=== PATIENT | female | born 1990 ===

== ENCOUNTER 2019-04-20 09:30 | Inpatient (IN) | payer OTHER ==
[2019-04-20] MEDS ORDERED: Oxytocin/0.9 % Sodium Chloride 30 UNIT/500 ML BAG IV SCH ×2 (10:30→12:45)
[2019-04-20] MEDS ORDERED: Misoprostol 200 MCG Tab PO PRN (10:30)
[2019-04-20] MEDS ORDERED: Water For Irrigation,Sterile 1,000 ML Container IRR PRN (10:30)
[2019-04-20] MEDS ORDERED: Carboprost Tromethamine 250 MCG/1 ML Amp IM PRN (10:30)
[2019-04-20] MEDS ORDERED: Sodium Chloride 0.9% 2.5 ML Syringe FLUSH PRN (10:30)
[2019-04-20] MEDS ORDERED: Nalbuphine 10 MG/1 ML Vial IVPUSH PRN (10:30)
[2019-04-20] MEDS ORDERED: Sodium Chloride 0.9% 10 ML Syringe FLUSH PRN (10:30)
[2019-04-20] MEDS ORDERED: Methylergonovine 0.2 MG/1 ML Amp IM PRN (10:30)
[2019-04-20] MEDS ORDERED: Sodium Chloride 0.9% 10 ML SDV IV PRN (10:30)
[2019-04-20] MEDS ORDERED: Lidocaine 1% 50 ML MDV INJECT PRN (10:30)
[2019-04-20] MEDS ORDERED: Butorphanol 1 MG/ML SDV IVPUSH PRN (10:30)
[2019-04-20] MEDS ORDERED: Tranexamic Acid 1,000 MG in Sodium Chloride 0.9% 100 ML IV PRN (10:30)
[2019-04-20] MEDS ORDERED: Terbutaline 1 MG/ML SDV SUBCUT PRN (12:33)
[2019-04-20] MEDS: Lactated Ringers 1,000 ML IV SCH ×3 (12:35→20:50)
[2019-04-20] MEDS ORDERED: Oxytocin/0.9 % Sodium Chloride 30 UNIT/500 ML BAG ONE (12:39)
[2019-04-20] MEDS ORDERED: Ropivacaine HCl/PF 100 ML ONE (13:07)
[2019-04-20] MEDS ORDERED: Lidocaine HCl/EPINEPHrine 5 ML IJ ONE (13:07)
--- NOTE | 2019-04-20 13:11 | PCM.PREANE ---
Preanesthetic Assessment - Anesthesia/Transfusion/Family Hx Anesthesia History: Prior Anesthesia Without Reaction Family History of Anesthesia Reaction: No - Review of Systems General: No Symptoms Pulmonary: No Symptoms Cardiovascular: No Symptoms Gastrointestinal: No Symptoms Neurological: No Symptoms Other: Reports: None - Physical Assessment Height: 1.55 m Weight: 78.471 kg ASA Class: 2E Mental Status: Alert & Oriented x3 Airway Class: Mallampati = 2 Dentition: Reports: Normal Dentition (small mouth) Thyro-Mental Finger Breadths: 3 Mouth Opening Finger Breadths: 3 ROM/Head Extension: Full Lungs: Clear to Auscultation, Normal Respiratory Effort Cardiovascular: Regular Rate, Regular Rhythm - Lab Values: Laboratory Last Values WBC 11.10 K/uL (4.0-11.0) H 04/20/19 11:02 RBC 3.82 M/uL (4.30-5.90) L 04/20/19 11:02 Hgb 10.7 g/dL (12.0-16.0) L 04/20/19 11:02 Hct 33.6 % (36.0-46.0) L 04/20/19 11:02 MCV 88.0 fL (80.0-98.0) 04/20/19 11:02 MCH 28.0 pg (27.0-32.0) 04/20/19 11:02 MCHC 31.8 g/dL (31.0-37.0) 04/20/19 11:02 RDW Std Deviation 44.4 fl (28.0-62.0) 04/20/19 11:02 RDW Coeff of Christian 14 % (11.0-15.0) 04/20/19 11:02 Plt Count 143 K/uL (150-400) L 04/20/19 11:02 MPV 12.70 fL (7.40-12.00) H 04/20/19 11:02 Nucleated RBC % 0.0 /100WBC 04/20/19 11:02 Nucleated RBCs # 0 K/uL 04/20/19 11:02 Membrane Rupture POSITIVE 04/20/19 09:45 Blood Type A POSITIVE 04/20/19 11:02 Antibody Screen NEGATIVE 04/20/19 11:02 - Allergies Allergies/Adverse Reactions: Allergies Allergy/AdvReac Type Severity Reaction Status Date / Time amoxicillin Allergy Hives Verified 04/14/19 21:07 Penicillins Allergy Hives and Verified 04/20/19 13:06 difficult breathing - Acknowledgements Anesthesia Type Planned: Epidural (discussed risks and benefits in great detail , with special emphasis on "patchy" epidural, postdural headache, and back pain after epidural. Alternatives were discussed and the patient consented for an epidural. All questions answered. ) Pt an Appropriate Candidate for the Planned Anesthesia: Yes Alternatives and Risks of Anesthesia Discussed w Pt/Guardian: Yes Pt/Guardian Understands and Agrees with Anesthesia Plan: Yes PreAnesthesia Questionnaire HEENT History: Reports: None Cardiovascular History: Reports: None Respiratory History: Reports: None Gastrointestinal History: Reports: None Genitourinary History: Reports: None PATIENT'S LIBRARIAN History: Reports: Musculoskeletal History: Reports: None Neurological History: Reports: None Psychiatric History: Reports: None Endocrine/Metabolic History: Reports: Obesity/BMI 30+ Hematologic History: Reports: None - Past Surgical History HEENT Surgical History: Reports: Tonsillectomy, Other (See Below) (wisdom teeth extractions) - SUBSTANCE USE Smoking Status *Q: Never Smoker Days Per Week of Alcohol Use: 0 - HOME MEDS Home Medications: Home Meds Pnv No.95/Ferrous Fum/Folic AC [ Caplet] 1 each PO 04/14/19 [History] - CURRENT (IN HOUSE) MEDS Current Meds: Current Medications Butorphanol Tartrate (Stadol) 1 mg IVPUSH Q1H PRN PRN Reason: Pain Carboprost Tromethamine (Hemabate Ds) 250 mcg IM ASDIRECTED PRN PRN Reason: Post Hemorrhage Lactated Ringer's (Ringers, Lactated) 1,000 mls @ 150 mls/hr IV ASDIRECTED AMAN Last Admin: 04/20/19 12:35 Dose: 150 mls/hr Oxytocin/Sodium Chloride (Oxytocin 30 Unit/500 Ml-Ns) 30 unit in 500 mls @ 500 mls/hr IV TITRATE AMAN Tranexamic Acid 1,000 mg/ (Sodium Chloride) 110 mls @ 660 mls/hr IV ONETIME PRN PRN Reason: Bleeding Oxytocin/Sodium Chloride (Oxytocin 30 Unit/500 Ml-Ns) 30 unit in 500 mls @ 2 mls/hr IV TITRATE AMAN; Protocol Last Admin: 04/20/19 12:43 Dose: 2 munits/min, 2 mls/hr Lidocaine HCl (Xylocaine 1%) 50 ml INJECT ONETIME PRN PRN Reason: Laceration repair Methylergonovine Maleate (Methergine) 0.2 mg IM ASDIRECTED PRN PRN Reason: Post Hemorrhage Misoprostol (Cytotec) 200 mcg PO ONETIME PRN PRN Reason: Post Hemorrhage Nalbuphine HCl (Nubain) 10 mg IVPUSH Q1H PRN PRN Reason: Pain (severe 7-10) Sodium Chloride (Saline Flush) 10 ml FLUSH ASDIRECTED PRN PRN Reason: Keep Vein Open Sodium Chloride (Saline Flush) 2.5 ml FLUSH ASDIRECTED PRN PRN Reason: Keep Vein Open Sodium Chloride (Normal Saline) 10 ml IV ASDIRECTED PRN PRN Reason: IV Use Sterile Water (Sterile Water For Irrigation) 1,000 ml IRR ASDIRECTED PRN PRN Reason: delivery Terbutaline Sulfate (Brethine) 0.25 mg SUBCUT ASDIRECTED PRN PRN Reason: Tacysystole Discontinued Medications Oxytocin/Sodium Chloride (Oxytocin 30 Unit/500 Ml-Ns) Confirm Administered Dose 30 unit in 500 mls @ as directed .ROUTE .STK-MED ONE Stop: 04/20/19 12:40 Ropivacaine (Naropin 0.2%) Confirm Administered Dose 100 mls @ as directed .ROUTE .STK-MED ONE Stop: 04/20/19 13:08 Lidocaine/Epinephrine (Lidocaine 1.5%-Epi 1:200,000) Confirm Administered Dose 5 ml IJ .STK-MED ONE Stop: 04/20/19 13:08
[2019-04-20] MEDS ORDERED: Acetaminophen 500 MG Tab ONE (14:19)
[2019-04-20] MEDS ORDERED: Cyclobenzaprine 10 MG Tab PO ONE (22:00)
[2019-04-20] MEDS ORDERED: Cyclobenzaprine 5 MG Tab ONE (22:04)
[2019-04-21] MEDS: Lactated Ringers 1,000 ML IV SCH ×3 (00:01→05:34)
[2019-04-21] MEDS ORDERED: Bupivacaine 0.5% 30 ML SDV ONE (03:51)
[2019-04-21] MEDS ORDERED: Morphine PF 10 MG/10 ML SDV ONE (06:43)
[2019-04-21] MEDS ORDERED: Oxytocin/0.9 % Sodium Chloride 30 UNIT/500 ML BAG ONE (06:48)
[2019-04-21] MEDS ORDERED: ceFAZolin 1 GM Vial ONE (06:49)
[2019-04-21] MEDS ORDERED: Sodium Chloride 0.9% 20 ML ONE (06:49)
[2019-04-21] MEDS ORDERED: Azithromycin 500 MG in Sodium Chloride 0.9% 250 ML IV STA (06:50)
[2019-04-21] MEDS ORDERED: Bisacodyl 10 MG Supp RECTAL PRN (07:45)
[2019-04-21] MEDS ORDERED: Lanolin 100% Cream 7 GM Tube TOP PRN (07:45)
[2019-04-21] MEDS ORDERED: diphenhydrAMINE 50 MG/ML SDV IVPUSH PRN ×2 (07:45→07:55)
[2019-04-21] MEDS ORDERED: Acetaminophen/oxyCODONE 325-5 MG Tab PO PRN (07:45)
[2019-04-21] MEDS ORDERED: Lactated Ringers 1,000 ML IV SCH (07:45)
[2019-04-21] MEDS ORDERED: Ondansetron 4 MG/2 ML SDV IVPUSH PRN ×2 (07:45→07:55)
--- NOTE | 2019-04-21 07:51 | PCM.OPNOTE ---
- General Post-Op/Procedure Note Date of Surgery/Procedure: 04/21/19 Operative Procedure(s): Primary low transverse section Findings: Live male infant, Apgars 8/9, weight 3530g, cord gases pending. Placenta, intact, 3 vessel cord. Normal-appearing uterus. Pre Op Diagnosis: 28yo @ 40w0d. Spontaneous rupture of membranes. Arrest of active phase Post-Op Diagnosis: Same Anesthesia Technique: Spinal Primary Surgeon: Kayleigh Alonso Motor Scooter Repairer: Kaela Lo Pathology: Cord gases, cord blood, placenta Fluid Replacement, Intraop: 1,000 Output, Urine Amount: 100 EBL in mLs: 500 Complications: None Condition: Good
[2019-04-21] MEDS ORDERED: Nalbuphine 10 MG/1 ML Vial IVPUSH PRN (07:55)
[2019-04-21] MEDS ORDERED: fentaNYL 100 MCG/2 ML SDV IVPUSH PRN (07:55)
[2019-04-21] MEDS ORDERED: Naloxone 0.4 MG/ML Syringe IVPUSH PRN (07:55)
[2019-04-21] MEDS: Ferrous Sulfate 325 MG Tab PO SCH (08:00)
[2019-04-21] MEDS: Ketorolac 30 MG/ML SDV IVPUSH SCH ×3 (08:08→19:39)
--- NOTE | 2019-04-21 08:55 | PCM.POSTAN ---
POST ANESTHESIA ASSESSMENT - MENTAL STATUS Mental Status: Alert, Oriented - VITAL SIGNS Vital Signs: Last Vital Signs Temp 36.6 C 04/21/19 07:53 Pulse 103 H 04/21/19 08:33 Resp 22 H 04/21/19 08:33 BP 108/62 04/21/19 08:33 Pulse Ox 94 L 04/21/19 08:33 - RESPIRATORY Respiratory Status: Respiratory Rate WNL, Airway Patent, O2 Saturation Stable - CARDIOVASCULAR CV Status: Pulse Rate WNL, Blood Pressure Stable - GASTROINTESTINAL GI Status: No Symptoms - PAIN Pain Score: 0 - POST OP HYDRATION Hydration Status: Adequate & Stable - OBSERVATIONS Free Text/Narrative:: no anesthesia problems
[2019-04-21] MEDS: Docusate Sodium 100 MG Cap PO SCH ×2 (09:00→20:47)
--- NOTE | 2019-04-21 09:08 | PCM.SN ---
- Free Text/Narrative Note: Called at 2014 on 04-20-19 for epidural pump alarming and increasing pain with the patient. New bag of 0.125% marcaine with 2mcg/ml fentanyl hung. Pt. bolused 5mls and pump restarted. Pt checked on 10 minutes later and the patient was comfortable. Care was resumed by OB staff.
--- NOTE | 2019-04-21 13:01 | PCM48HPAN ---
Post Anesthesia Note - EVALUATION WITHIN 48HRS OF ANESTHETIC Vital Signs in Normal Range: Yes Patient Participated in Evaluation: Yes Respiratory Function Stable: Yes Airway Patent: Yes Cardiovascular Function Stable: Yes Hydration Status Stable: Yes Pain Control Satisfactory: Yes Nausea and Vomiting Control Satisfactory: Yes Mental Status Recovered: Yes Vital Signs: Last Vital Signs Temp 36.2 C 04/21/19 09:30 Pulse 100 04/21/19 11:00 Resp 18 04/21/19 11:00 BP 119/62 04/21/19 10:30 Pulse Ox 99 04/21/19 11:00 - COMMENTS/OBSERVATIONS Free Text/Narrative:: no anesthesia problems
--- NOTE | 2019-04-21 14:06 | OR ---
SURGEON: Kayleigh Alonso MD DATE OF PROCEDURE: 04/21/2019 PROCEDURE: section. PREOPERATIVE DIAGNOSES: 1. A 28-year-old, G2, P0-0-1-0, at 40 weeks and 0 days gestation. 2. Augmentation of labor for spontaneous rupture of membranes. 3. Arrest of active phase. POSTOPERATIVE DIAGNOSES: 1. A 28-year-old, G2, P0-0-1-0, at 40 weeks and 0 days gestation. 2. Augmentation of labor for spontaneous rupture of membranes. 3. Arrest of active phase. PROCEDURE: Primary low transverse section. PRIMARY SURGEON: Kayleigh Alonso MD. COUNTY PROGRAM TECHNICIAN: Kaela Lo. ANESTHESIA: Spinal. IV FLUIDS: 1000 mL LR. ESTIMATED BLOOD LOSS: 500 mL. URINE OUTPUT: 100 mL. FINDINGS: Live male infant in cephalic presentation. Apgars 8 and 9 at one and five minutes respectively. Weight 3530 g. Cord gases pending. Normal-appearing uterus. ANTIBIOTIC PROPHYLAXIS: Ancef 2 g and 500 mg azithromycin IV. DESCRIPTION OF PROCEDURE: The patient reported rupture of membranes and contractions that began on the morning of April 20. She presented to Labor and labor was augmented with Pitocin. She progressed to an anterior lip station after 4 hours with no cervical change and Pitocin with adequate contractions. The decision was made to proceed with primary section for arrest of active phase. The patient was taken to the operating room where spinal anesthesia was obtained as her epidural was not effective. She was placed in the dorsal supine position with a leftward tilt. She was prepared and draped in normal sterile fashion. A Pfannenstiel skin incision was made with a scalpel and carried through to the underlying layer of fascia with the Bovie. The fascia was incised in the midline and the incision extended laterally with curved Lo scissors. The superior aspect of the fascial incision was grasped with Chrystal clamps, elevated, and underlying rectus muscle dissected off bluntly and with Bovie. In a similar fashion, the inferior aspect of the fascial incision was grasped with Chrystal clamps, elevated, and underlying rectus muscles dissected off bluntly with curved Lo scissors. The peritoneum was identified and entered bluntly with a digit. The peritoneal incision was extended using manual traction. The Oscar retractor was placed. A low-transverse hysterotomy was created and extended with manual traction. The infant's head was delivered atraumatically followed by the remainder of body. The nose and mouth were suctioned with bulb suction. After approximately 20 seconds of delayed cord clamping, the cord was clamped and cut. The was handed off to the awaiting fitter up and nurse. Cord gases and cord blood were obtained. The placenta was delivered using uterine massage and gentle traction on the cord. The hysterotomy was repaired with a running lock stitch of 0 Vicryl suture. The second stitch of the same suture was used to obtain excellent hemostasis. The Oscar retractor was removed from the abdomen. The hysterotomy was inspected and the noted to be hemostatic. The fascial incision was closed with a running stitch of 0 Vicryl suture. The skin was closed with 4-0 Monocryl in subcuticular manner. All sponge, lap, and needle counts were correct x2. The patient and tolerated the procedure well. The patient was taken to the recovery room in stable condition. [id number] / MODL /[id number]
--- NOTE | 2019-04-21 17:28 | PCM.SN ---
- Free Text/Narrative Note: called to evaluate patient with back pain. The patient appears comfortable, and smiling throughout the interview, and cooperative. She states that her "lower back is okay." Her major concern is her head, and upper back which includes her neck down to her scapula have been bothering her since early this morning. She stated that it began after she was repositioned around 0400 this morning while she was in labor. After she was repositioned, she immediately she felt that "something was not right" which she describes as tingling in both arms, short of breath, and neck stiffness. She also states that she has a headache that radiates from the back of her head to her forehead. The patient thinks that she has a pinched nerve. Flexeril and one dose of percocet was given and the patient has had no relief. She does state that the heating pads help, and laying flat, neck flexion makes the pain worse. She notes that she can rotate her neck and extend and flex her neck but it is stiff, and she has pain. So she has been trying not to move. She also denies tingling or radiating pain down her arms at this time. Physical exam Neuroexam: upper extremities and lower extremity motor and sensory are intact. Has limited neck flexion and extension, and rotation due to neck stiffness. Back epidural sites have no signs of erythema, edema, or bruising. Back is also nontender to light and deep palpation. Plan at this time would be to continue with the heat pads. Switch to IV Tylenol, and see if this improves.
[2019-04-21] MEDS ORDERED: Acetaminophen 1,000 MG in Premix Bag 1 BAG IV ONE (18:14)
[2019-04-22] MEDS: Acetaminophen 1,000 MG in Premix Bag 1 BAG IV SCH ×2 (00:05→05:58)
[2019-04-22] MEDS: Ketorolac 30 MG/ML SDV IVPUSH SCH ×2 (01:34→07:58)
[2019-04-22] MEDS ORDERED: Lidocaine 2% 5 ML SDV ONE ×2 (08:36→08:37)
--- NOTE | 2019-04-22 08:49 | PCM.PNPP ---
- General Info Date of Service: 04/22/19 Functional Status: Reports: Pain Controlled - Review of Systems General: Reports: Fatigue. Denies: Fever, Weakness Pulmonary: Denies: Shortness of Breath Cardiovascular: Denies: Chest Pain, Palpitations, Lightheadedness Gastrointestinal: Denies: Abdominal Pain, Nausea, Vomiting Genitourinary: Denies: Flank Pain Skin: Reports: No Symptoms Neurological: Reports: Headache Psychiatric: Reports: No Symptoms - General Info Date of Service: 04/22/19 - Patient Data Vital Signs - Most Recent: Last Vital Signs Temp 36.4 C 04/22/19 04:23 Pulse 84 04/22/19 06:38 Resp 16 04/22/19 06:38 BP 117/68 04/22/19 04:23 Pulse Ox 100 04/22/19 06:38 Weight - Most Recent: 78.471 kg I&O - Last 24 Hours: Intake & Output 04/21/19 04/22/19 04/22/19 22:59 06:59 14:59 Intake Total 100 Output Total 800 1400 Balance -800 -1300 Lab Results - Last 24 Hours: Laboratory Results - last 24 hr 04/22/19 Range/Units 05:56 Hgb 9.9 L (12.0-16.0) g/dL Hct 31.1 L (36.0-46.0) % Med Orders - Current: Current Medications Bisacodyl (Dulcolax) 10 mg RECTAL ONETIME PRN PRN Reason: Constipation Butorphanol Tartrate (Stadol) 1 mg IVPUSH Q1H PRN PRN Reason: Pain Carboprost Tromethamine (Hemabate Ds) 250 mcg IM ASDIRECTED PRN PRN Reason: Post Hemorrhage Diphenhydramine HCl (Benadryl) 25 mg IVPUSH Q6H PRN PRN Reason: Itching or Nausea Docusate Sodium (Colace) 100 mg PO BID AMAN Last Admin: 04/21/19 20:47 Dose: 100 mg Emollient Ointment (Lansinoh Hpa) 0 gm TOP ASDIRECTED PRN PRN Reason: Sore Nipples Fentanyl (Sublimaze) 50 mcg IVPUSH Q1H PRN PRN Reason: Pain (severe 7-10) Last Admin: 04/21/19 08:10 Dose: 50 mcg Ferrous Sulfate (Ferrous Sulfate) 325 mg PO BRK [facility] Last Admin: 04/21/19 08:00 Dose: Not Given Tranexamic Acid 1,000 mg/ (Sodium Chloride) 110 mls @ 660 mls/hr IV ONETIME PRN PRN Reason: Bleeding Lactated Ringer's (Ringers, Lactated) 1,000 mls @ 125 mls/hr IV ASDIRECTED [facility] Last Admin: 04/21/19 14:19 Dose: 125 mls/hr Ibuprofen (Motrin) 800 mg PO Q8H PRN PRN Reason: mild pain or fever Methylergonovine Maleate (Methergine) 0.2 mg IM ASDIRECTED PRN PRN Reason: Post Hemorrhage Misoprostol (Cytotec) 200 mcg PO ONETIME PRN PRN Reason: Post Hemorrhage Nalbuphine HCl (Nubain) 5 mg IVPUSH ASDIRECTED PRN PRN Reason: Itching Ondansetron HCl (Zofran) 4 mg IVPUSH Q4H PRN PRN Reason: Nausea/Vomiting Last Admin: 04/21/19 08:08 Dose: 4 mg Ondansetron HCl (Zofran) 4 mg IVPUSH Q6H PRN PRN Reason: Nausea Oxycodone/Acetaminophen (Percocet 325-5 Mg) 1 tab PO Q4H PRN PRN Reason: Pain (moderate 4-6) Last Admin: 04/21/19 17:00 Dose: 1 tab Oxycodone/Acetaminophen (Percocet 325-5 Mg) 2 tab PO Q4H PRN PRN Reason: Pain (moderate 4-6) Oxycodone/Acetaminophen (Percocet 325-5 Mg) 2 tab PO Q6H PRN PRN Reason: Pain (moderate 4-6) Discontinued Medications Acetaminophen (Tylenol Extra Strength) Confirm Administered Dose 500 mg .ROUTE .STK-MED ONE Stop: 04/20/19 14:20 Last Admin: 04/21/19 21:11 Dose: Not Given Bupivacaine HCl (Marcaine 0.5%) Confirm Administered Dose 30 ml .ROUTE .STK-MED ONE Stop: 04/21/19 03:52 Last Admin: 04/21/19 21:11 Dose: Not Given Cefazolin Sodium (Ancef) Confirm Administered Dose 2 gm .ROUTE .STK-MED ONE Stop: 04/21/19 06:50 Cyclobenzaprine HCl (Flexeril) 10 mg PO ONETIME ONE Stop: 04/20/19 22:01 Last Admin: 04/20/19 22:08 Dose: 10 mg Cyclobenzaprine HCl (Flexeril) Confirm Administered Dose 10 mg .ROUTE .STK-MED ONE Stop: 04/20/19 22:05 Diphenhydramine HCl (Benadryl) 25 mg IVPUSH Q4H PRN PRN Reason: Itching Stop: 04/22/19 07:55 Lactated Ringer's (Ringers, Lactated) 1,000 mls @ 150 mls/hr IV ASDIRECTED AMAN Last Admin: 04/21/19 05:34 Dose: 500 mls/hr Oxytocin/Sodium Chloride (Oxytocin 30 Unit/500 Ml-Ns) 30 unit in 500 mls @ 500 mls/hr IV TITRATE AMAN Oxytocin/Sodium Chloride (Oxytocin 30 Unit/500 Ml-Ns) 30 unit in 500 mls @ 2 mls/hr IV TITRATE AMAN; Protocol Last Titration: 04/21/19 05:10 Dose: 8 munits/min, 8 mls/hr Oxytocin/Sodium Chloride (Oxytocin 30 Unit/500 Ml-Ns) Confirm Administered Dose 30 unit in 500 mls @ as directed .ROUTE .ST-MED ONE Stop: 04/20/19 12:40 Last Admin: 04/21/19 21:11 Dose: Not Given Ropivacaine (Naropin 0.2%) Confirm Administered Dose 100 mls @ as directed .ROUTE .ST-MED ONE Stop: 04/20/19 13:08 Last Admin: 04/21/19 21:11 Dose: Not Given Fentanyl/Bupivacaine HCl (Hfemoltd-Tcdnr-Xu 2 Mcg/Ml-0.125%) Confirm Administered Dose 100 mls @ as directed .ROUTE .STK-MED ONE Stop: 04/20/19 20:41 Last Admin: 04/21/19 21:11 Dose: Not Given Fentanyl/Bupivacaine HCl (Muwjkflu-Fjwbi-Vr 2 Mcg/Ml-0.125%) Confirm Administered Dose 100 mls @ as directed .ROUTE .STK-MED ONE Stop: 04/21/19 00:43 Last Admin: 04/21/19 21:11 Dose: Not Given Fentanyl/Bupivacaine HCl (Yjnjdwhd-Hwnsp-Rf 2 Mcg/Ml-0.125%) Confirm Administered Dose 100 mls @ as directed .ROUTE .STK-MED ONE Stop: 04/21/19 04:54 Last Admin: 04/21/19 21:11 Dose: Not Given Oxytocin/Sodium Chloride (Oxytocin 30 Unit/500 Ml-Ns) Confirm Administered Dose 30 unit in 500 mls @ as directed .ROUTE .STK-MED ONE Stop: 04/21/19 06:49 Azithromycin 500 mg/ Sodium (Chloride) 250 mls @ 250 mls/hr IV ONETIME STA Stop: 04/21/19 07:49 Sodium Chloride (Normal Saline) Confirm Administered Dose 20 mls @ as directed .ROUTE .STK-MED ONE Stop: 04/21/19 06:50 Acetaminophen 1,000 mg/ Premix 100 mls @ 400 mls/hr IV NOW ONE Stop: 04/21/19 18:28 Last Admin: 04/21/19 18:29 Dose: 400 mls/hr Acetaminophen 1,000 mg/ Premix 100 mls @ 400 mls/hr IV Q6H AMAN Stop: 04/22/19 06:14 Last Admin: 04/22/19 05:58 Dose: 400 mls/hr Ketorolac Tromethamine (Toradol) 30 mg IVPUSH Q6H AMAN Stop: 04/22/19 07:46 Last Admin: 04/22/19 07:58 Dose: 30 mg Lidocaine (Xylocaine-Mpf 2%) Confirm Administered Dose 5 ml .ROUTE .STK-MED ONE Stop: 04/22/19 08:37 Lidocaine (Xylocaine-Mpf 2%) Confirm Administered Dose 5 ml .ROUTE .STK-MED ONE Stop: 04/22/19 08:38 Lidocaine HCl (Xylocaine 1%) 50 ml INJECT ONETIME PRN PRN Reason: Laceration repair Lidocaine/Epinephrine (Lidocaine 1.5%-Epi 1:200,000) Confirm Administered Dose 5 ml IJ .STK-MED ONE Stop: 04/20/19 13:08 Last Admin: 04/21/19 21:11 Dose: Not Given Morphine Sulfate (Duramorph Pf) Confirm Administered Dose 10 mg .ROUTE .STK-MED ONE Stop: 04/21/19 06:44 Nalbuphine HCl (Nubain) 10 mg IVPUSH Q1H PRN PRN Reason: Pain (severe 7-10) Naloxone HCl (Narcan) 0.1 mg IVPUSH ONETIME PRN PRN Reason: Respiratory Depression Stop: 04/22/19 07:55 Sodium Chloride (Saline Flush) 10 ml FLUSH ASDIRECTED PRN PRN Reason: Keep Vein Open Sodium Chloride (Saline Flush) 2.5 ml FLUSH ASDIRECTED PRN PRN Reason: Keep Vein Open Sodium Chloride (Normal Saline) 10 ml IV ASDIRECTED PRN PRN Reason: IV Use Sterile Water (Sterile Water For Irrigation) 1,000 ml IRR ASDIRECTED PRN PRN Reason: delivery Terbutaline Sulfate (Brethine) 0.25 mg SUBCUT ASDIRECTED PRN PRN Reason: Tacysystole - Interaction Support Person: - Recovery Exam Fundal Tone: Firm Fundal Level: At Umbilicus Fundal Placement: Midline Lochia Amount: Scant, Small Lochia Color: Rubra/Red Perineum Description: Intact, Minimal Bruising/Swelling Episiotomy/Laceration: None Bladder Status: Indwelling Catheter in Place Urinary Elimination: Indwelling Catheter - Exam General: Alert, Oriented Lungs: Normal Respiratory Effort Cardiovascular: Regular Rate, Regular Rhythm GI/Abdominal Exam: Normal Bowel Sounds, Soft Extremities: Pedal Edema (trace). No: Vinod's Sign Skin: Warm, Dry, Intact Neurological: No New Focal Deficit Psy/Mental Status: Alert, Normal Affect, Normal Mood - Problem List & Annotations (1) Delivery by section SNOMED Code(s): 527418215 Code(s): [id number] - Status: Acute Current Visit: Yes - Problem List Review Problem List Initiated/Reviewed/Updated: Yes - Assessment Assessment:: POD 1 status post primary LTCS Headache, suspicious for spinal headache - Plan Plan:: Anesthesia has assessed and is following patient for her headache Continue postoperative cares. VS are stable.
[2019-04-22] MEDS: Acetaminophen/oxyCODONE 325-5 MG Tab PO PRN ×2 (12:19→18:27)
[2019-04-22] MEDS: Docusate Sodium 100 MG Cap PO SCH ×2 (13:32→23:37)
--- NOTE | 2019-04-22 13:53 | PCM.SN ---
- Free Text/Narrative Note: PT. continue to having a head ache and neck stiffness. Reports that the headache is worse when she stands up and better when she is flat. The patient was agreeable to trying a sphenopalatine ganglion block. At 0945, two cotton tipped applicators were soaked in 4% lidocaine and inserted into the left nostril cephalad direction until resistance was felt. This was repeated in right nare. The cotton top applicators were in place for 10 minutes and then 0.5CC of 4% lidocaine was dripped down the inside of the tube of the cotton tip applicator on the left. This was repeated in the right nare. The cotton tip applicators were left in place for 20 more minutes. The cotton tip applicators were removed intact. The patient laid flat for another 30 minutes. The patient was reassessed a few hours later. She reported initially after the block she felt better but after a shower felt worse. She reports the headache had improved to a tolerable level after Percocet and drinking Pepsi with caffeine. The option of an epidural blood patch was discussed. Including the risks and benefits. The patient is going to be in the hospital for another night. It was decided that at this time the patient was going to continue to treat the headache with conservative treatment including percocet, caffeine and fluids. The patient will reevaluate in the morning if her head ache improved or is worse. Further treatment options will be discussed with her at that time including the possibility of a blood patch.
[2019-04-22] MEDS: Ibuprofen 800 MG Tab PO PRN ×2 (15:01→23:37)
[2019-04-23] MEDS: Acetaminophen/oxyCODONE 325-5 MG Tab PO PRN ×3 (00:43→15:27)
[2019-04-23] MEDS: Ibuprofen 800 MG Tab PO PRN (09:18)
--- NOTE | 2019-04-23 09:19 | PCM.SN ---
- Free Text/Narrative Note: The patient reported feeling better this morning. She reports her headache has improved significantly from yesterday. She reports the pain from the headache is manageable with ice packs, pain medicine and caffeine. The patient didn't fell that a blood patch would need to be done at this time. It was discussed with the patient that she can always come back to the hospital after discharge if the headache becomes worse or the symptoms change. It was discussed that she can be reassessed at that time by anesthesia for the possibility of a blood patch. The patient was encouraged to increase her oral fluid intake to at least 3L a day, increase her caffeine intake to at least 300 mg po a day, and continue to use pain medications until the headache resolves.
[2019-04-23] MEDS: Ferrous Sulfate 325 MG Tab PO SCH ×2 (09:20→09:23)
[2019-04-23] MEDS: Docusate Sodium 100 MG Cap PO SCH (09:20)
--- NOTE | 2019-04-23 13:06 | PCM.PNPP ---
- General Info Date of Service: 04/23/19 Functional Status: Reports: Pain Controlled, Tolerating Diet, Ambulating, Urinating - Review of Systems General: Denies: Fever, Weakness, Fatigue Pulmonary: Denies: Shortness of Breath Cardiovascular: Denies: Chest Pain, Palpitations, Lightheadedness Gastrointestinal: Denies: Abdominal Pain, Nausea, Vomiting Genitourinary: Denies: Flank Pain Musculoskeletal: Reports: No Symptoms Skin: Reports: No Symptoms Neurological: Reports: Headache (headache is 5/10 instead of 8. Lidocaine did not alleviate completely. ). Denies: Dizziness, Numbness, Paresthesia Psychiatric: Reports: No Symptoms - Patient Data Vital Signs - Most Recent: Last Vital Signs Temp 36.6 C 04/23/19 07:22 Pulse 75 04/23/19 07:22 Resp 16 04/23/19 07:22 BP 124/75 04/23/19 07:22 Pulse Ox 99 04/23/19 07:22 Weight - Most Recent: 78.471 kg I&O - Last 24 Hours: Intake & Output 04/22/19 04/23/19 04/23/19 22:59 06:59 14:59 Output Total 1200 Balance -1200 Med Orders - Current: Current Medications Bisacodyl (Dulcolax) 10 mg RECTAL ONETIME PRN PRN Reason: Constipation Butorphanol Tartrate (Stadol) 1 mg IVPUSH Q1H PRN PRN Reason: Pain Carboprost Tromethamine (Hemabate Ds) 250 mcg IM ASDIRECTED PRN PRN Reason: Post Hemorrhage Diphenhydramine HCl (Benadryl) 25 mg IVPUSH Q6H PRN PRN Reason: Itching or Nausea Docusate Sodium (Colace) 100 mg PO BID [facility] Last Admin: 04/23/19 09:20 Dose: 100 mg Emollient Ointment (Lansinoh Hpa) 0 gm TOP ASDIRECTED PRN PRN Reason: Sore Nipples Fentanyl (Sublimaze) 50 mcg IVPUSH Q1H PRN PRN Reason: Pain (severe 7-10) Last Admin: 04/21/19 08:10 Dose: 50 mcg Ferrous Sulfate (Ferrous Sulfate) 325 mg PO BRK [facility] Last Admin: 04/23/19 09:23 Dose: 325 mg Tranexamic Acid 1,000 mg/ (Sodium Chloride) 110 mls @ 660 mls/hr IV ONETIME PRN PRN Reason: Bleeding Lactated Ringer's (Ringers, Lactated) 1,000 mls @ 125 mls/hr IV ASDIRECTED [facility] Last Admin: 04/21/19 14:19 Dose: 125 mls/hr Ibuprofen (Motrin) 800 mg PO Q8H PRN PRN Reason: mild pain or fever Last Admin: 04/23/19 09:18 Dose: 800 mg Methylergonovine Maleate (Methergine) 0.2 mg IM ASDIRECTED PRN PRN Reason: Post Hemorrhage Misoprostol (Cytotec) 200 mcg PO ONETIME PRN PRN Reason: Post Hemorrhage Nalbuphine HCl (Nubain) 5 mg IVPUSH ASDIRECTED PRN PRN Reason: Itching Ondansetron HCl (Zofran) 4 mg IVPUSH Q4H PRN PRN Reason: Nausea/Vomiting Last Admin: 04/21/19 08:08 Dose: 4 mg Ondansetron HCl (Zofran) 4 mg IVPUSH Q6H PRN PRN Reason: Nausea Oxycodone/Acetaminophen (Percocet 325-5 Mg) 1 tab PO Q4H PRN PRN Reason: Pain (moderate 4-6) Last Admin: 04/21/19 17:00 Dose: 1 tab Oxycodone/Acetaminophen (Percocet 325-5 Mg) 2 tab PO Q4H PRN PRN Reason: Pain (moderate 4-6) Last Admin: 04/23/19 07:28 Dose: 2 tab Oxycodone/Acetaminophen (Percocet 325-5 Mg) 2 tab PO Q6H PRN PRN Reason: Pain (moderate 4-6) Last Admin: 04/22/19 18:27 Dose: 2 tab Discontinued Medications Acetaminophen (Tylenol Extra Strength) Confirm Administered Dose 500 mg .ROUTE .STK-MED ONE Stop: 04/20/19 14:20 Last Admin: 04/21/19 21:11 Dose: Not Given Bupivacaine HCl (Marcaine 0.5%) Confirm Administered Dose 30 ml .ROUTE .STK-MED ONE Stop: 04/21/19 03:52 Last Admin: 04/21/19 21:11 Dose: Not Given Cefazolin Sodium (Ancef) Confirm Administered Dose 2 gm .ROUTE .STK-MED ONE Stop: 04/21/19 06:50 Cyclobenzaprine HCl (Flexeril) 10 mg PO ONETIME ONE Stop: 04/20/19 22:01 Last Admin: 04/20/19 22:08 Dose: 10 mg Cyclobenzaprine HCl (Flexeril) Confirm Administered Dose 10 mg .ROUTE .STK-MED ONE Stop: 04/20/19 22:05 Diphenhydramine HCl (Benadryl) 25 mg IVPUSH Q4H PRN PRN Reason: Itching Stop: 04/22/19 07:55 Lactated Ringer's (Ringers, Lactated) 1,000 mls @ 150 mls/hr IV ASDIRECTED [facility] Last Admin: 04/21/19 05:34 Dose: 500 mls/hr Oxytocin/Sodium Chloride (Oxytocin 30 Unit/500 Ml-Ns) 30 unit in 500 mls @ 500 mls/hr IV TITRATE AMAN Oxytocin/Sodium Chloride (Oxytocin 30 Unit/500 Ml-Ns) 30 unit in 500 mls @ 2 mls/hr IV TITRATE AMAN; Protocol Last Titration: 04/21/19 05:10 Dose: 8 munits/min, 8 mls/hr Oxytocin/Sodium Chloride (Oxytocin 30 Unit/500 Ml-Ns) Confirm Administered Dose 30 unit in 500 mls @ as directed .ROUTE .STK-MED ONE Stop: 04/20/19 12:40 Last Admin: 04/21/19 21:11 Dose: Not Given Ropivacaine (Naropin 0.2%) Confirm Administered Dose 100 mls @ as directed .ROUTE .ST-MED ONE Stop: 04/20/19 13:08 Last Admin: 04/21/19 21:11 Dose: Not Given Fentanyl/Bupivacaine HCl (Ltffrjie-Wugjg-Nq 2 Mcg/Ml-0.125%) Confirm Administered Dose 100 mls @ as directed .ROUTE .STK-MED ONE Stop: 04/20/19 20:41 Last Admin: 04/21/19 21:11 Dose: Not Given Fentanyl/Bupivacaine HCl (Gxdvttgr-Kcrfd-Nn 2 Mcg/Ml-0.125%) Confirm Administered Dose 100 mls @ as directed .ROUTE .STK-MED ONE Stop: 04/21/19 00:43 Last Admin: 04/21/19 21:11 Dose: Not Given Fentanyl/Bupivacaine HCl (Yubqkine-Wwxrv-Ig 2 Mcg/Ml-0.125%) Confirm Administered Dose 100 mls @ as directed .ROUTE .STK-MED ONE Stop: 04/21/19 04:54 Last Admin: 04/21/19 21:11 Dose: Not Given Oxytocin/Sodium Chloride (Oxytocin 30 Unit/500 Ml-Ns) Confirm Administered Dose 30 unit in 500 mls @ as directed .ROUTE .STK-MED ONE Stop: 04/21/19 06:49 Azithromycin 500 mg/ Sodium (Chloride) 250 mls @ 250 mls/hr IV ONETIME STA Stop: 04/21/19 07:49 Sodium Chloride (Normal Saline) Confirm Administered Dose 20 mls @ as directed .ROUTE .STK-MED ONE Stop: 04/21/19 06:50 Acetaminophen 1,000 mg/ Premix 100 mls @ 400 mls/hr IV NOW ONE Stop: 04/21/19 18:28 Last Admin: 04/21/19 18:29 Dose: 400 mls/hr Acetaminophen 1,000 mg/ Premix 100 mls @ 400 mls/hr IV Q6H [facility] Stop: 04/22/19 06:14 Last Admin: 04/22/19 05:58 Dose: 400 mls/hr Ketorolac Tromethamine (Toradol) 30 mg IVPUSH Q6H [facility] Stop: 04/22/19 07:46 Last Admin: 04/22/19 07:58 Dose: 30 mg Lidocaine (Xylocaine-Mpf 2%) Confirm Administered Dose 5 ml .ROUTE .STK-MED ONE Stop: 04/22/19 08:37 Lidocaine (Xylocaine-Mpf 2%) Confirm Administered Dose 5 ml .ROUTE .STK-MED ONE Stop: 04/22/19 08:38 Lidocaine HCl (Xylocaine 1%) 50 ml INJECT ONETIME PRN PRN Reason: Laceration repair Lidocaine/Epinephrine (Lidocaine 1.5%-Epi 1:200,000) Confirm Administered Dose 5 ml IJ .STK-MED ONE Stop: 04/20/19 13:08 Last Admin: 04/21/19 21:11 Dose: Not Given Morphine Sulfate (Duramorph Pf) Confirm Administered Dose 10 mg .ROUTE .STK-MED ONE Stop: 04/21/19 06:44 Nalbuphine HCl (Nubain) 10 mg IVPUSH Q1H PRN PRN Reason: Pain (severe 7-10) Naloxone HCl (Narcan) 0.1 mg IVPUSH ONETIME PRN PRN Reason: Respiratory Depression Stop: 04/22/19 07:55 Sodium Chloride (Saline Flush) 10 ml FLUSH ASDIRECTED PRN PRN Reason: Keep Vein Open Sodium Chloride (Saline Flush) 2.5 ml FLUSH ASDIRECTED PRN PRN Reason: Keep Vein Open Sodium Chloride (Normal Saline) 10 ml IV ASDIRECTED PRN PRN Reason: IV Use Sterile Water (Sterile Water For Irrigation) 1,000 ml IRR ASDIRECTED PRN PRN Reason: delivery Terbutaline Sulfate (Brethine) 0.25 mg SUBCUT ASDIRECTED PRN PRN Reason: Tacysystole - Interaction Support Person: - Recovery Exam Fundal Tone: Firm Fundal Level: At Umbilicus Fundal Placement: Midline Lochia Amount: Small Lochia Color: Rubra/Red Perineum Description: Intact, Minimal Bruising/Swelling Episiotomy/Laceration: None Bladder Status: Voiding Urinary Elimination: Voided - Exam General: Alert, Oriented Lungs: Normal Respiratory Effort Cardiovascular: Regular Rate, Regular Rhythm GI/Abdominal Exam: Normal Bowel Sounds, Soft Extremities: Pedal Edema (1+), Limited Range of Motion (has pain/headache when moves head). No: Vinod's Sign Skin: Warm, Dry, Intact Wound/Incisions: Healing Well, No Drainage. No: Erythema Neurological: No New Focal Deficit Psy/Mental Status: Alert, Normal Affect - Problem List & Annotations (1) Delivery by section SNOMED Code(s): 022671954 Code(s): YLL9975 - Status: Acute Current Visit: Yes - Problem List Review Problem List Initiated/Reviewed/Updated: Yes - My Orders Last 24 Hours: My Active Orders 04/23/19 13:02 Ready for Discharge [RC] PER UNIT ROUTINE - Assessment Assessment:: POD 2 status post primary LTCS Spinal headache - Plan Plan:: After discussion, encouraging patient to undergo blood patch as she is still symptomatic from headache. She does agree. Otherwise, is ready to be discharged to home. Discharge instructions reviewed. Follow up at [facility] 2 and 6 weeks. She is to call with any concerns or questions. Infection and bleeding warnings reviewed. Discharge to home after anesthesia clears her from blood patch.
--- NOTE | 2019-04-23 14:41 | PCM.PREANE ---
Preanesthetic Assessment - Procedure Proposed Procedure: Epidural Blood Patch - Anesthesia/Transfusion/Family Hx Anesthesia History: Prior Anesthesia Without Reaction Family History of Anesthesia Reaction: No Intubation History: Unknown - Review of Systems General: No Symptoms Pulmonary: No Symptoms Cardiovascular: No Symptoms Gastrointestinal: No Symptoms Neurological: Headache Other: Reports: None - Physical Assessment Vital Signs: Last Vital Signs Temp 36.6 C 04/23/19 07:22 Pulse 75 04/23/19 07:22 Resp 16 04/23/19 07:22 BP 124/75 04/23/19 07:22 Pulse Ox 99 04/23/19 07:22 Height: 1.55 m Weight: 78.471 kg ASA Class: 2 Mental Status: Alert & Oriented x3 Dentition: Reports: Normal Dentition Thyro-Mental Finger Breadths: 3 Mouth Opening Finger Breadths: 3 ROM/Head Extension: Full Lungs: Clear to Auscultation Cardiovascular: Regular Rate - Lab Values: Laboratory Last Values WBC 11.10 K/uL (4.0-11.0) H 04/20/19 11:02 RBC 3.82 M/uL (4.30-5.90) L 04/20/19 11:02 Hgb 9.9 g/dL (12.0-16.0) L 04/22/19 05:56 Hct 31.1 % (36.0-46.0) L 04/22/19 05:56 MCV 88.0 fL (80.0-98.0) 04/20/19 11:02 MCH 28.0 pg (27.0-32.0) 04/20/19 11:02 MCHC 31.8 g/dL (31.0-37.0) 04/20/19 11:02 RDW Std Deviation 44.4 fl (28.0-62.0) 04/20/19 11:02 RDW Coeff of Christian 14 % (11.0-15.0) 04/20/19 11:02 Plt Count 143 K/uL (150-400) L 04/20/19 11:02 MPV 12.70 fL (7.40-12.00) H 04/20/19 11:02 Nucleated RBC % 0.0 /100WBC 04/20/19 11:02 Nucleated RBCs # 0 K/uL 04/20/19 11:02 Cord ABG pH 7.180 (7.18-7.38) 04/21/19 07:19 Cord ABG Base Excess -13 (-10--2) L 04/21/19 07:19 Cord VBG pH 7.145 (7.25-7.45) L 04/21/19 07:19 Cord VBG Base Excess -10 (-10--2) 04/21/19 07:19 Membrane Rupture POSITIVE 04/20/19 09:45 Blood Type A POSITIVE 04/20/19 11:02 Antibody Screen NEGATIVE 04/20/19 11:02 - Allergies Allergies/Adverse Reactions: Allergies Allergy/AdvReac Type Severity Reaction Status Date / Time amoxicillin Allergy Hives Verified 04/14/19 21:07 Penicillins Allergy Hives and Verified 04/20/19 13:06 difficult breathing - Blood Blood Available: No - Anesthesia Plan Free Text/Narrative:: Patient post epidural x2 and SAB for . Multiple puncture sites. Headaches from between eyes going posterior to central ocp. Worse with standing , better supine. Very anxious after difficult #1 epidural. Chart reviewed. Discussed, ? answered, accepts, wishes to proceed, permit signed. Will proceed. - Acknowledgements Pt an Appropriate Candidate for the Planned Anesthesia: Yes Alternatives and Risks of Anesthesia Discussed w Pt/Guardian: Yes Pt/Guardian Understands and Agrees with Anesthesia Plan: Yes Additional Comments: Acceptable candidate for procedure. PreAnesthesia Questionnaire HEENT History: Reports: None Cardiovascular History: Reports: None Respiratory History: Reports: None Gastrointestinal History: Reports: None Genitourinary History: Reports: None SUPPORTABILITY ENGINEER History: Reports: Musculoskeletal History: Reports: None Neurological History: Reports: None Psychiatric History: Reports: None Endocrine/Metabolic History: Reports: Obesity/BMI 30+ Hematologic History: Reports: None - Past Surgical History HEENT Surgical History: Reports: Tonsillectomy, Other (See Below) (wisdom teeth extractions) - SUBSTANCE USE Smoking Status *Q: Never Smoker Second Hand Smoke Exposure: No Days Per Week of Alcohol Use: 0 Recreational Drug Use History: No - HOME MEDS Home Medications: Home Meds Pnv No.95/Ferrous Fum/Folic AC [ Caplet] 1 each PO 04/14/19 [History] - CURRENT (IN HOUSE) MEDS Current Meds: Current Medications Bisacodyl (Dulcolax) 10 mg RECTAL ONETIME PRN PRN Reason: Constipation Butorphanol Tartrate (Stadol) 1 mg IVPUSH Q1H PRN PRN Reason: Pain Carboprost Tromethamine (Hemabate Ds) 250 mcg IM ASDIRECTED PRN PRN Reason: Post Hemorrhage Diphenhydramine HCl (Benadryl) 25 mg IVPUSH Q6H PRN PRN Reason: Itching or Nausea Docusate Sodium (Colace) 100 mg PO BID [facility] Last Admin: 04/23/19 09:20 Dose: 100 mg Emollient Ointment (Lansinoh Hpa) 0 gm TOP ASDIRECTED PRN PRN Reason: Sore Nipples Fentanyl (Sublimaze) 50 mcg IVPUSH Q1H PRN PRN Reason: Pain (severe 7-10) Last Admin: 04/21/19 08:10 Dose: 50 mcg Ferrous Sulfate (Ferrous Sulfate) 325 mg PO BRK [facility] Last Admin: 04/23/19 09:23 Dose: 325 mg Tranexamic Acid 1,000 mg/ (Sodium Chloride) 110 mls @ 660 mls/hr IV ONETIME PRN PRN Reason: Bleeding Lactated Ringer's (Ringers, Lactated) 1,000 mls @ 125 mls/hr IV ASDIRECTED [facility] Last Admin: 04/21/19 14:19 Dose: 125 mls/hr Ibuprofen (Motrin) 800 mg PO Q8H PRN PRN Reason: mild pain or fever Last Admin: 04/23/19 09:18 Dose: 800 mg Methylergonovine Maleate (Methergine) 0.2 mg IM ASDIRECTED PRN PRN Reason: Post Hemorrhage Misoprostol (Cytotec) 200 mcg PO ONETIME PRN PRN Reason: Post Hemorrhage Nalbuphine HCl (Nubain) 5 mg IVPUSH ASDIRECTED PRN PRN Reason: Itching Ondansetron HCl (Zofran) 4 mg IVPUSH Q4H PRN PRN Reason: Nausea/Vomiting Last Admin: 04/21/19 08:08 Dose: 4 mg Ondansetron HCl (Zofran) 4 mg IVPUSH Q6H PRN PRN Reason: Nausea Oxycodone/Acetaminophen (Percocet 325-5 Mg) 1 tab PO Q4H PRN PRN Reason: Pain (moderate 4-6) Last Admin: 04/21/19 17:00 Dose: 1 tab Oxycodone/Acetaminophen (Percocet 325-5 Mg) 2 tab PO Q4H PRN PRN Reason: Pain (moderate 4-6) Last Admin: 04/23/19 07:28 Dose: 2 tab Oxycodone/Acetaminophen (Percocet 325-5 Mg) 2 tab PO Q6H PRN PRN Reason: Pain (moderate 4-6) Last Admin: 04/22/19 18:27 Dose: 2 tab Discontinued Medications Acetaminophen (Tylenol Extra Strength) Confirm Administered Dose 500 mg .ROUTE .STK-MED ONE Stop: 04/20/19 14:20 Last Admin: 04/21/19 21:11 Dose: Not Given Bupivacaine HCl (Marcaine 0.5%) Confirm Administered Dose 30 ml .ROUTE .STK-MED ONE Stop: 04/21/19 03:52 Last Admin: 04/21/19 21:11 Dose: Not Given Cefazolin Sodium (Ancef) Confirm Administered Dose 2 gm .ROUTE .STK-MED ONE Stop: 04/21/19 06:50 Cyclobenzaprine HCl (Flexeril) 10 mg PO ONETIME ONE Stop: 04/20/19 22:01 Last Admin: 04/20/19 22:08 Dose: 10 mg Cyclobenzaprine HCl (Flexeril) Confirm Administered Dose 10 mg .ROUTE .STK-MED ONE Stop: 04/20/19 22:05 Diphenhydramine HCl (Benadryl) 25 mg IVPUSH Q4H PRN PRN Reason: Itching Stop: 04/22/19 07:55 Lactated Ringer's (Ringers, Lactated) 1,000 mls @ 150 mls/hr IV ASDIRECTED [facility] Last Admin: 04/21/19 05:34 Dose: 500 mls/hr Oxytocin/Sodium Chloride (Oxytocin 30 Unit/500 Ml-Ns) 30 unit in 500 mls @ 500 mls/hr IV TITRATE [facility] Oxytocin/Sodium Chloride (Oxytocin 30 Unit/500 Ml-Ns) 30 unit in 500 mls @ 2 mls/hr IV TITRATE [facility]; Protocol Last Titration: 04/21/19 05:10 Dose: 8 munits/min, 8 mls/hr Oxytocin/Sodium Chloride (Oxytocin 30 Unit/500 Ml-Ns) Confirm Administered Dose 30 unit in 500 mls @ as directed .ROUTE .STK-MED ONE Stop: 04/20/19 12:40 Last Admin: 04/21/19 21:11 Dose: Not Given Ropivacaine (Naropin 0.2%) Confirm Administered Dose 100 mls @ as directed .ROUTE .STK-MED ONE Stop: 04/20/19 13:08 Last Admin: 04/21/19 21:11 Dose: Not Given Fentanyl/Bupivacaine HCl (Xxptpvsp-Lajfe-Lo 2 Mcg/Ml-0.125%) Confirm Administered Dose 100 mls @ as directed .ROUTE .STK-MED ONE Stop: 04/20/19 20:41 Last Admin: 04/21/19 21:11 Dose: Not Given Fentanyl/Bupivacaine HCl (Fdjjpwde-Afhcb-Yp 2 Mcg/Ml-0.125%) Confirm Administered Dose 100 mls @ as directed .ROUTE .STK-MED ONE Stop: 04/21/19 00:43 Last Admin: 04/21/19 21:11 Dose: Not Given Fentanyl/Bupivacaine HCl (Xmdjhgfz-Irlrc-Ap 2 Mcg/Ml-0.125%) Confirm Administered Dose 100 mls @ as directed .ROUTE .ST-MED ONE Stop: 04/21/19 04:54 Last Admin: 04/21/19 21:11 Dose: Not Given Oxytocin/Sodium Chloride (Oxytocin 30 Unit/500 Ml-Ns) Confirm Administered Dose 30 unit in 500 mls @ as directed .ROUTE .STK-MED ONE Stop: 04/21/19 06:49 Azithromycin 500 mg/ Sodium (Chloride) 250 mls @ 250 mls/hr IV ONETIME STA Stop: 04/21/19 07:49 Sodium Chloride (Normal Saline) Confirm Administered Dose 20 mls @ as directed .ROUTE .STK-MED ONE Stop: 04/21/19 06:50 Acetaminophen 1,000 mg/ Premix 100 mls @ 400 mls/hr IV NOW ONE Stop: 04/21/19 18:28 Last Admin: 04/21/19 18:29 Dose: 400 mls/hr Acetaminophen 1,000 mg/ Premix 100 mls @ 400 mls/hr IV Q6H [facility] Stop: 04/22/19 06:14 Last Admin: 04/22/19 05:58 Dose: 400 mls/hr Ketorolac Tromethamine (Toradol) 30 mg IVPUSH Q6H [facility] Stop: 04/22/19 07:46 Last Admin: 04/22/19 07:58 Dose: 30 mg Lidocaine (Xylocaine-Mpf 2%) Confirm Administered Dose 5 ml .ROUTE .STK-MED ONE Stop: 04/22/19 08:37 Lidocaine (Xylocaine-Mpf 2%) Confirm Administered Dose 5 ml .ROUTE .STK-MED ONE Stop: 04/22/19 08:38 Lidocaine HCl (Xylocaine 1%) 50 ml INJECT ONETIME PRN PRN Reason: Laceration repair Lidocaine/Epinephrine (Lidocaine 1.5%-Epi 1:200,000) Confirm Administered Dose 5 ml IJ .STK-MED ONE Stop: 04/20/19 13:08 Last Admin: 04/21/19 21:11 Dose: Not Given Morphine Sulfate (Duramorph Pf) Confirm Administered Dose 10 mg .ROUTE .STK-MED ONE Stop: 04/21/19 06:44 Nalbuphine HCl (Nubain) 10 mg IVPUSH Q1H PRN PRN Reason: Pain (severe 7-10) Naloxone HCl (Narcan) 0.1 mg IVPUSH ONETIME PRN PRN Reason: Respiratory Depression Stop: 04/22/19 07:55 Sodium Chloride (Saline Flush) 10 ml FLUSH ASDIRECTED PRN PRN Reason: Keep Vein Open Sodium Chloride (Saline Flush) 2.5 ml FLUSH ASDIRECTED PRN PRN Reason: Keep Vein Open Sodium Chloride (Normal Saline) 10 ml IV ASDIRECTED PRN PRN Reason: IV Use Sterile Water (Sterile Water For Irrigation) 1,000 ml IRR ASDIRECTED PRN PRN Reason: delivery Terbutaline Sulfate (Brethine) 0.25 mg SUBCUT ASDIRECTED PRN PRN Reason: Tacysystole
--- NOTE | 2019-04-23 14:49 | PCM.PRNOTE ---
- Free Text/Narrative Note: Requested for Epidural Blood Patch for post dural puncture Headache. Discussed and evaluated. Agree that is probably the origin of her headaches. Prep with chloro-prep. Skin local 5ml 1% lidocaine at upper puncture site ? L3-L4. Epidural space ID'd on first pass with saline/air mixture. Reconfirmed X1. Negative aspiration, no CSF noted. 20ml autologous injected slowly. Pressure noted in lumbar area with discomfort in tailbone. Placed flat at end of the procedure. VSS. Pressure slowly resolved. Tolerated well. No problems noted immediately post procedure. Will let rest for a hour, monitor then recheck.
--- NOTE | 2019-04-23 15:35 | PCM.SN ---
- Free Text/Narrative Note: Rechecked on patient. Headache gone. Stiffness in shoulder area. Most likely due to being so tense. Instructed to rest in be until ~17:30 then free to go. Will recheck before leaves.
--- NOTE | 2019-04-23 16:46 | PCM48HPAN ---
Post Anesthesia Note - EVALUATION WITHIN 48HRS OF ANESTHETIC Vital Signs in Normal Range: Yes Patient Participated in Evaluation: Yes Respiratory Function Stable: Yes Airway Patent: Yes Cardiovascular Function Stable: Yes Hydration Status Stable: Yes Pain Control Satisfactory: Yes Nausea and Vomiting Control Satisfactory: Yes Mental Status Recovered: Yes Vital Signs: Last Vital Signs Temp 36.6 C 04/23/19 07:22 Pulse 75 04/23/19 07:22 Resp 16 04/23/19 07:22 BP 124/75 04/23/19 07:22 Pulse Ox 99 04/23/19 07:22 - COMMENTS/OBSERVATIONS Free Text/Narrative:: ~3 hrs post Epidural blood patch. Headache resolved. Up without issues. Will be discharged tonight. No problems noted at present.
== END 2019-04-23 17:30 | disposition home or self-care (01) | DRG 788 ==
LOC: MW.OB 09:30 → MW.OBCHECK 09:30 → MW.OB 10:30 → OBSVTOIN 04-21 07:18 → MW.OB 04-21 07:20
PROVIDERS: ADMIT Obstetrics & Gynecology; ATTEND Obstetrics & Gynecology
PROC: 3E0R3GC Introduction of Other Therapeutic Substance into Spinal Canal, Percutaneous Approach (ICD-10-PCS; 2019-04-20)
PROC: 10H073Z Insertion of Monitoring Electrode into Products of Conception, Via Natural or Artificial Opening (ICD-10-PCS; 2019-04-20)
PROC: 10H07YZ Insertion of Other Device into Products of Conception, Via Natural or Artificial Opening (ICD-10-PCS; 2019-04-20)
PROC: 10D00Z1 Extraction of Products of Conception, Low, Open Approach (ICD-10-PCS; principal; 2019-04-21)
DX: O48.0 Post-term pregnancy (principal); O76 Abnormality in fetal heart rate and rhythm complicating labor and delivery; Z3A.39 39 weeks gestation of pregnancy; Z37.0 Single live birth; O89.4 Spinal and epidural anesthesia-induced headache during the puerperium; O99.214 Obesity complicating childbirth; E66.9 Obesity, unspecified
CPT/HCPCS: 36415; 59025; 82803; 84112; 85014; 85018; 85027; 86850; 86900; 86901; A9270-GY; J0131; J0690; J1885; J2001; J2270; J2405; J2590; J2795; J3010; J3490; J7120